=== PATIENT | male | born 1945 | race Caucasian/White ===

== ENCOUNTER 2022-12-13 14:10 | Emergency (ER) | payer MEDICARE, OTHER ==
[~2022-12-13] VITALS: Ht 165.1 cm; Wt 64.4 kg
[2022-12-13 14:36] VITALS: BP_SYST 122
--- NOTE | 2022-12-13 16:01 | NUR ---
Pt alert and oriented x4, VSS, no signs of acute distress. Apears to to have mild oribital edema. WIll continue to monitor.
[2022-12-13 16:14] LABS: BASOPHILS % (AUTO) 0.8 % (0.0-2.0); EOSINOPHILS % (AUTO) 1.1 % (0.0-4.0); HEMATOCRIT 35.4 % (36-54); HEMOGLOBIN 11.1 g/dL (14.0-18.0); LYMPHOCYTES # (AUTO) 0.5 K/uL (1.0-5.5); MEAN CORPUSCULAR HEMOGLOBIN 25 pg (27-31); MEAN CORPUSCULAR HGB CONC 31 % (32-36); MEAN CORPUSCULAR VOLUME 79 fL (79.0-98.0); MONOCYTES # (AUTO) 0.5 K/uL (0.0-1.0); MONOCYTES % (AUTO) 15.1 % (1.7-9.3); NEUTROPHILS # (AUTO) 2.2 K/uL (1.8-7.7); PLATELET COUNT (AUTO) 172 K/uL (130-430); RED BLOOD CELL COUNT(AUTO) 4.51 MIL/uL (4.2-6.2); RED CELL DISTRIBUTION WIDTH 16.9 % (9.0-15.0); WHITE BLOOD COUNT (AUTO) 3.2 K/uL (4.8-10.8)
[2022-12-13 16:22] LABS: INR 1.2 (0.80-1.20); PROTHROMBIN TIME 12.3 SECS (9.5-12.5)
[2022-12-13 16:25] LABS: ANION GAP 4 (5-15); CALCIUM 8.8 mg/dL (8.4-11.0); CHLORIDE 101 mmol/L (98-107); CREATININE 1.75 mg/dL (0.55-1.30); GLUCOSE 193 mg/dL (70-99); UREA NITROGEN, BLOOD 23 mg/dL (8-21)
[2022-12-13 16:30] LABS: ALANINE AMINOTRANSFERASE 22 U/L (12-78); ALBUMIN 3.3 g/dL (3.4-4.8); ASPARTATE AMINOTRANSFERASE 14 U/L (10-37); TOTAL BILIRUBIN 0.9 mg/dL (0.0-1.0)
--- NOTE | 2022-12-13 17:15 | NUR ---
CALLED DECK[facility] SPOKE WITH [facility]. WAITING FOR A CALL BACK
[2022-12-13] MEDS ORDERED: ASPIRIN 81 MG TABLET(ECOTRIN) PO ONE (17:30)
[2022-12-13] MEDS ORDERED: FUROSEMIDE 40 MG/4 ML VIAL IVP ONE (17:30)
--- NOTE | 2022-12-13 20:50 | NUR ---
COVID SAMPLE COLLECTED AND SENT TO LAB
--- NOTE | 2022-12-13 22:44 | NUR ---
REPORT GIVEN TO MARTA SU.
--- NOTE | 2022-12-13 22:46 | NUR ---
Patient to be transferred to [facility]. Is being transferred due to higher level of care. Receiving facility has accepting physician and available space. ER physician has signed transfer form. Patient or responsible constitution party has agreed to transfer and signed form. Patient belongings inventoried and will be sent with patient. Copy of nursing notes, lab reports, EKG, Physicians Orders and X-rays to be sent with patient. Report called to SHERINE at receiving facility. Receiving physician is . ambulance service has been called for transfer. ETA is .
[2022-12-13 23:50] VITALS: BP_SYST 110
== END 2022-12-13 23:53 | disposition short-term general hospital (02) ==
LOC: SED 14:10
DX: I11.0 Hypertensive heart disease with heart failure (principal); I50.23 Acute on chronic systolic (congestive) heart failure; R60.1 Generalized edema; J44.9 Chronic obstructive pulmonary disease, unspecified; E78.5 Hyperlipidemia, unspecified; E11.9 Type 2 diabetes mellitus without complications; Z88.6 Allergy status to analgesic agent; Z79.899 Other long term (current) drug therapy; Z20.822 Contact with and (suspected) exposure to COVID-19
CPT/HCPCS: 99285; 96374; 71045; 87426; 80053; 82550; 83880; 85025; 85610; 85730; 84484; 36415; 93005; J1940

== ENCOUNTER 2023-02-11 01:21 | Emergency (ER) | payer MEDICARE, OTHER ==
[2023-02-11 01:26] VITALS: BP_SYST 101
[2023-02-11 02:07] LABS: BASOPHILS # (AUTO) 0.1 K/uL (0.0-0.2); BASOPHILS % (AUTO) 1.3 % (0.0-2.0); EOSINOPHILS # (AUTO) 0.1 K/uL (0.0-0.4); EOSINOPHILS % (AUTO) 1.2 % (0.0-4.0); HEMATOCRIT 36.5 % (36-54); HEMOGLOBIN 11.3 g/dL (14.0-18.0); LYMPHOCYTES # (AUTO) 0.9 K/uL (1.0-5.5); LYMPHOCYTES % (AUTO) 18.6 % (20.5-51.5); MEAN CORPUSCULAR HEMOGLOBIN 24 pg (27-31); MEAN CORPUSCULAR HGB CONC 31 % (32-36); MEAN CORPUSCULAR VOLUME 77 fL (79.0-98.0); MONOCYTES # (AUTO) 0.5 K/uL (0.0-1.0); NEUTROPHILS # (AUTO) 3.4 K/uL (1.8-7.7); NEUTROPHILS % (AUTO) 68.9 % (40.0-70.0); PLATELET COUNT (AUTO) 201 K/uL (130-430); RED BLOOD CELL COUNT(AUTO) 4.74 MIL/uL (4.2-6.2); RED CELL DISTRIBUTION WIDTH 19.5 % (9.0-15.0)
[2023-02-11 02:24] LABS: ALANINE AMINOTRANSFERASE 9 U/L (12-78); ALBUMIN 2.6 g/dL (3.4-4.8); ANION GAP 7 (5-15); ASPARTATE AMINOTRANSFERASE 16 U/L (10-37); CALCIUM 8.5 mg/dL (8.4-11.0); CHLORIDE 96 mmol/L (98-107); CREATININE 1.74 mg/dL (0.55-1.30); GLUCOSE 133 mg/dL (70-99); TOTAL BILIRUBIN 0.9 mg/dL (0.0-1.0); UREA NITROGEN, BLOOD 28 mg/dL (8-21)
[2023-02-11 02:39] LABS: PHOSPHORUS 3.2 mg/dL (2.7-4.5)
[2023-02-11] MEDS ORDERED: FUROSEMIDE 40 MG/4 ML VIAL IVP ONE (03:30)
[2023-02-11] MEDS ORDERED: ASPIRIN 81 MG TAB.CHEW PO ONE (04:45)
[2023-02-11] MEDS ORDERED: LORazepam 1 MG TABLET PO ONE (06:15)
[2023-02-11] MEDS ORDERED: LORazepam 2 MG/ML VIAL ONE (06:45)
[2023-02-11] MEDS ORDERED: LORazepam 2 MG/ML VIAL IVP ONE ×2 (06:45→08:15)
[2023-02-11 10:08] VITALS: BP_SYST 125
== END 2023-02-11 07:46 | disposition short-term general hospital (02) ==
LOC: SED 01:42
DX: I13.0 Hypertensive heart and chronic kidney disease with heart failure and stage 1 through stage 4 chronic kidney disease, or unspecified chronic kidney disease (principal); I50.9 Heart failure, unspecified; E11.22 Type 2 diabetes mellitus with diabetic chronic kidney disease; N18.9 Chronic kidney disease, unspecified; D50.9 Iron deficiency anemia, unspecified; E78.5 Hyperlipidemia, unspecified; Z88.6 Allergy status to analgesic agent; Z79.899 Other long term (current) drug therapy; Z20.822 Contact with and (suspected) exposure to COVID-19
CPT/HCPCS: 99285; 70450; 96374; 71045; 96375; 87426; 80053; 83880; 83735; 84100; 85025; 87081; 84484; 36415; 72170; 73080; 72125; 76376; 96376; J1940; J2060